=== PATIENT | male | born 1995 | race Hispanic/Latino ===

== ENCOUNTER 2021-10-08 19:07 | Emergency (ER) | payer OTHER, SELFPAY ==
[2021-10-08 19:15] VITALS: BP 140/67; PULSE 71; RESP 16; TEMP 36.4; O2SAT 100
--- NOTE | 2021-10-08 19:26 | ED.SKABFB ---
HPI - Skin/Abscess/Foreign Bdy General Chief complaint: Skin/Abscess/Foreign Body Stated complaint: bump on lip Time Seen by Provider: 10/08/21 19:11 Source: patient Mode of arrival: ambulatory Limitations: no limitations History of Present Illness HPI narrative: 26-year-old male presents to [facility] with complaints of pinpoint area of white discoloration noted to his bottom lip for the past 2 to 3 days. Patient reports that he has history of anxiety and often bites his lip. Patient reports that he has googling his symptoms and is concerned about herpes. Patient denies penile discharge, open sores to his penis, urinary symptoms, fever, body aches, chills, nausea, vomiting or diarrhea. Patient currently is not established with a local primary care provider. Patient denies history of cold sores or canker sores. Exacerbating factors: none Context: none Associated symptoms: denies other symptoms Treatments prior to arrival: none Related Data Home Medications Medication Instructions Recorded Confirmed No Home Medications 10/08/21 10/08/21 Allergies Allergy/AdvReac Type Severity Reaction Status Date / Time No Known Allergies Allergy Verified 10/08/21 19:17 Review of Systems Constitutional: Constitutional: Denies chills, Denies fatigue, Denies fever(s) and Denies weakness ENT: Denies vertigo and Denies dizziness Comments: Area of discoloration to bottom lip Cardiovascular: Cardiovascular: Denies chest pain, Denies rapid heart rate and Denies radiating jaw, neck or arm pain Gastrointestinal: Gastrointestinal: Denies abdominal pain, Denies constipation and Denies heartburn Integumentary/Breasts: Skin/Breast: Denies rash PMFSH Social History Social History (Updated 10/08/21 @ 19:28 by Mirtha Ruelas, PROFESSIONAL NURSE) Smoking status: Current every day smoker Comments At time of signature, I agree with nursing past medical, surgical, social and family history. There is no relevant family history pertinent to the presenting complaint. Exam Const: General: healthy appearing Nutritional Appearance: well nourished Orientation/consciousness: patient oriented x3 Limitations: no limitations HENMT: Head: normal to inspection Mouth: Yes Normal oral and palatal mucosa present, Yes lip normal, Yes moist mucous membranes and Yes Abnormal oral and palatal mucosa present Other: There is a 0.25 cm pinpoint area of white discoloration noted to bottom lip. There is no swelling noted. There is no open wounds, purulent drainage, bruising or bleeding noted. Area looks like irritation from biting lip Neck: Neck: normal visual inspection Resp: Effort & Inspection: normal respiratory effort and not labored Auscultation: clear to auscultation bilaterally and no crackles Cardio: Rate: regular rate, not bradycardic and not tachycardic Rhythm: regular rhythm Heart sounds: no murmurs Skin: General skin exam: normal color Rashes: no rashes Wounds: no wounds Neuro: General: patient oriented x3 Speech: normal speech Gait exam (Neuro): Normal gait present Psych: Affect: normal affect Attitude: cooperative Course Course Level of Care: Express Care Visit Vital Signs Vital signs: Vital Signs Temperature 36.4 C L 10/08/21 19:15 Pulse Rate 71 10/08/21 19:15 Respiratory Rate 16 10/08/21 19:15 Blood Pressure 140/67 10/08/21 19:15 Pulse Oximetry 100 10/08/21 19:15 Oxygen Delivery Room Air 10/08/21 19:15 Temperature 36.4 C L 10/08/21 19:15 Pulse Rate 71 10/08/21 19:15 Respiratory Rate 16 10/08/21 19:15 Blood Pressure 140/67 10/08/21 19:15 Pulse Oximetry 100 10/08/21 19:15 Oxygen Delivery Room Air 10/08/21 19:15 MDM - Skin/Abscess/Foreign Bdy MDM Narrative Medical decision making narrative: Encourage patient to keep lips moist using Vaseline and to avoid biting his lips. Informed patient to follow-up with dermatology or primary care provider if symptoms do not improve. Patient ag
== END 2021-10-08 19:35 | disposition home or self-care (01) ==
PROVIDERS: Emergency Provider Nurse Practitioner Family
DX: K13.1 Cheek and lip biting (principal); F17.200 Nicotine dependence, unspecified, uncomplicated
CPT/HCPCS: 99211; G0463